=== PATIENT | male | born 1965 | race Caucasian/White ===

== ENCOUNTER 2018-02-28 10:50 | Emergency (ER) | payer BC ==
[2018-02-28] MEDS ORDERED: morphine CARPU-JECT 4 MG/1 ML DISP.SYRIN IVPUSH ONE ×2 (10:54→12:05)
[2018-02-28] MEDS ORDERED: SODIUM CHLORIDE 1,000 ML IV STA (10:54)
[2018-02-28] MEDS ORDERED: KETOROLAC TROMETHAMINE 30 MG/1 ML VIAL IVPUSH ONE (10:54)
--- NOTE | 2018-02-28 10:54 | PDOC ---
History of Present Illness - General Chief Complaint: Injury Stated Complaint: LEFT RIB PAIN BRUISING TO BACK Time Seen by Provider: 02/28/18 10:54 History Source: Patient Exam Limitations: No Limitations - History of Present Illness Initial Comments: 52 yo M history depression presents with L-sided rib pain since last night. He states that he fell from a ladder 2 days ago, did not seek medical attention at the time, stating he thought that he was ok. He states that he was unable to find a comfortable position last night, and now is in severe pain. Worse with any movements of his torso and any deep breath. No coughing, [place], fever. Pain is severe. Did not take anything for pain prior to arrival. Past History - Past Medical History Allergies/Adverse Reactions: Allergies Allergy/AdvReac Type Severity Reaction Status Date / Time No Known Allergies Allergy Unverified 02/28/18 10:52 Home Medications: Ambulatory Orders Escitalopram Oxalate [Lexapro -] 10 mg PO DAILY 02/28/18 Ibuprofen [Motrin -] 600 mg PO TID PRN #21 tablet 02/28/18 Methocarbamol [Robaxin -] 500 mg PO BID PRN #14 tablet 02/28/18 Omeprazole Magnesium [Prilosec Otc] 40 mg PO DAILY 02/28/18 Oxycodone HCl/Acetaminophen [Percocet 5-325 mg Tablet] 1 - 2 tab PO Q6H PRN #20 tab MDD 8 tabs 02/28/18 Review of Systems - Review of Systems Able to Perform ROS?: Yes Comments:: GENERAL/CONSTITUTIONAL: No fever or chills. No weakness. HEAD, EYES, EARS, NOSE AND THROAT: No change in vision. No ear pain or discharge. No sore throat. CARDIOVASCULAR: No chest pain or shortness of breath. +Pain with deep inspiration. RESPIRATORY: No cough, wheezing, or hemoptysis. GASTROINTESTINAL: No nausea, vomiting, diarrhea or constipation. GENITOURINARY: No dysuria, frequency, or change in urination. MUSCULOSKELETAL: No joint or muscle swelling or pain. No neck or back pain. SKIN: No rash NEUROLOGIC: No headache, vertigo, loss of consciousness, or change in strength/ sensation. ENDOCRINE: No increased thirst. No abnormal weight change. HEMATOLOGIC/LYMPHATIC: No anemia, easy bleeding, or history of blood clots. ALLERGIC/IMMUNOLOGIC: No hives or skin allergy. *Physical Exam - Physical Exam Comments: GENERAL: Awake, alert, and fully oriented, in no acute distress HEAD: No signs of trauma EYES: PERRLA, EOMI, sclera anicteric, conjunctiva clear ENT: Auricles normal inspection, hearing grossly normal, nares patent, oropharynx clear without exudates. Moist mucosa NECK: Normal ROM, supple, no lymphadenopathy, JVD, or masses LUNGS: Breath sounds equal, clear to auscultation bilaterally. No wheezes, and no crackles HEART: Regular rate and rhythm, normal S1 and S2, no murmurs, rubs or gallops ABDOMEN: Soft, nontender, normoactive bowel sounds. No guarding, no rebound. No masses MUSCULOSKELETAL: +Tenderness to the L posterior and anterior ribs. +Ecchymosis to L upper and R upper chest at the level of the scapulae. Dec ROM of the upper arms due to pain. Remainder of extremities with normal range of motion, no edema. No clubbing or cyanosis. No cords, erythema, or tenderness NEUROLOGICAL: Cranial nerves II through XII grossly intact. Normal speech, normal gait. Motor and sensation intact. SKIN: Warm, Dry, normal turgor, no rashes. ED Treatment Course - LABORATORY CBC & Chemistry Diagram: 02/28/18 11:00 02/28/18 11:00 Medical Decision Making - Medical Decision Making 02/28/18 13:28 Pt reports improvement in pain. CT findings discussed with patient and family at bedside. There are signs of prior rib fracture, but no acute fx, no ptx. The delayed presentation suggests there is a component of muscular strain, which does not always present immediately. Will treat with pain meds and muscle relaxers. Stable for DC home. *DC/Admit/Observation/Transfer Diagnosis at time of Disposition: Rib pain on left side, Muscle strain - Discharge Dispostion Disposition: HOME Condition at time of disposition: Improved Decision to Admit order: No - Prescriptions Prescriptions: Ibuprofen [Motrin -] 600 mg PO TID PRN #21 tablet PRN Reason: Pain Methocarbamol [Robaxin -] 500 mg PO BID PRN #14 tablet PRN Reason: Muscle Spasms Oxycodone HCl/Acetaminophen [Percocet 5-325 mg Tablet] 1 - 2 tab PO Q6H PRN #20 tab MDD 8 tabs PRN Reason: Severe Pain - Referrals - Patient Instructions Printed Discharge Instructions: DI for Muscle Strain, DI for Rib Contusion - Post Discharge Activity Forms/Work/School Notes: Back to Work
[2018-02-28 11:03] VITALS: BMI 30.4
[2018-02-28] MEDS ORDERED: KETOROLAC TROMETHAMINE 30 MG/1 ML VIAL ONE (11:04)
[2018-02-28] MEDS ORDERED: morphine SULFATE 4 MG/ML VIAL ONE ×2 (11:05→12:04)
[2018-02-28 11:13] LABS: BASO % 1.3 % (0-2.0); EOS % 2.4 % (0-4.5); HEMATOCRIT 47.2 % (35.4-49); HEMOGLOBIN 16.1 GM/dl (11.7-16.9); LYMPH % 28.3 % (8-40); MCHC 34.2 g/dl (32.0-35.9); MEAN CELL VOLUME 87.8 fl (80-96); MONO % 7.6 % (3.8-10.2); NEUT % 60.4 % (42.8-82.8); PLATELET COUNT 233 K/MM3 (134-434); RBC 5.38 M/mm3 (4.00-5.60); RDW 14.4 % (11.9-15.9); WHITE BLOOD COUNT 8.7 K/mm3 (4.0-10.8)
[2018-02-28 11:51] LABS: ALBUMIN 4.2 g/dl (3.5-5.0); ALK PHOS 62 U/L (32-92); ANION GAP 6 (8-16); BILIRUBIN,TOTAL 0.5 mg/dl (0.2-1.0); BLOOD UREA NITROGEN 14 mg/dl (7-18); CALCIUM 8.6 mg/dl (8.4-10.2); CHLORIDE 101 mmol/L (98-107); CO2 28 mmol/L (22-28); CREATININE 0.7 mg/dl (0.6-1.3); GLUCOSE,RANDOM 122 mg/dl (74-106); POTASSIUM 4.5 mmol/L (3.5-5.1); SGOT/AST 50 U/L (10-42); SGPT/ALT 54 U/L (10-40); SODIUM 135 mmol/L (136-145); TOT PROT 7.5 g/dl (6.4-8.3)
[2018-02-28 13:23] VITALS: BP 129/80; PULSE 71; TEMP 96
== END 2018-02-28 13:33 | disposition home or self-care (01) ==
LOC: FER 10:50
PROC: 3E0333Z Introduction of Anti-inflammatory into Peripheral Vein, Percutaneous Approach (ICD-10-PCS; principal; 2018-02-28)
PROC: 3E033NZ Introduction of Analgesics, Hypnotics, Sedatives into Peripheral Vein, Percutaneous Approach (ICD-10-PCS; 2018-02-28)
PROC: 3E0337Z Introduction of Electrolytic and Water Balance Substance into Peripheral Vein, Percutaneous Approach (ICD-10-PCS; 2018-02-28)
DX: R07.81 Pleurodynia (principal); T14.8XXA Other injury of unspecified body region, initial encounter; W11.XXXA Fall on and from ladder, initial encounter; Y93.89 Activity, other specified; Y92.9 Unspecified place or not applicable
CPT/HCPCS: 36415; 71045-TC-FY; 71250-TC; 72128-TC; 80053; 85025; 99282-25; J7030